=== PATIENT | female | born 1970 | race Caucasian/White ===

== ENCOUNTER 2018-02-15 11:20 | Observation (INO) | END 2018-02-17 16:50 | disposition home or self-care (01) ==

== ENCOUNTER 2018-02-21 17:45 | Inpatient (IN) | END 2018-02-25 19:50 | disposition home or self-care (01) | DRG 393 ==

== ENCOUNTER 2018-04-20 08:59 | Day surgery (SDC) | END 2018-04-20 14:52 | disposition home or self-care (01) ==

== ENCOUNTER 2019-02-17 10:00 | Day surgery (SDC) | payer OTHER ==
[~2019-02-17] VITALS: Ht 162.6 cm; Wt 88.7 kg
[~2019-02-17 10:00] MED LIST: LEVO112T42 PO
[2019-02-17 10:51] VITALS: Ht 162.6 cm; Wt 88.7 kg
[2019-02-17] MEDS ORDERED: [UNRECOGNIZED DRUG - OTHER] (10:59)
--- NOTE | 2019-02-17 11:01 | PREAC ---
Date/Time of Note Date/Time of Note DATE: 02/17/19 TIME: 10:59 Anesthesia Eval and Record Evaluation Time Pre-Procedure Interview DATE: 02/17/19 TIME: 10:59 Age 48 Sex female NPO: 8 hrs Preoperative diagnosis dyspepsia Planned procedure EGD Past Medical History Past Medical History: Includes GI: Obesity Surgery & Anesthesia Issues No known issue Meds Anticoagulation: No Beta Edelmira within 24 hr: No Reason Beta Edelmira not given: Pt. not on B-Edelmira Reported Medications Levothyroxine Sodium* (Levoxyl*) 112 Mcg Tablet, 112 MCG PO BEFORE BREAKFAST, #30 TAB 02/15/18 Meds reviewed: Yes Allergies Coded Allergies: codeine (Verified Allergy, Severe, SWELL, 04/20/18) Uncoded Allergies: FOOD COLORING (Allergy, Unknown, 02/15/18) Allergies Reviewed: Yes Labs/Studies Labs Reviewed: Reviewed by anesthesiologist test: Negative Studies: ECG (n/a), CXR (n/a) Pre-procedure Exam Airway: Adequate mouth opening Mallampati: Mallampati I Teeth: Normal Lung: Normal Heart: Normal ASA Physical Status ASA physical status: 1 Emergency: None Planned Anesthetic General/MAC: MAC Planned Pain Management Parenteral pain med Pre-operative Attestations Prior to commencing anesthesia and surgery, the patient was re-evaluated, there was verification of: *The patient's identity *The results of appropriate recent lab work and preoperative vital signs *The above evaluation not changing prior to induction *Anesthetic plan, risk benefits, alternative and complications discussed with patient/family; questions answered; patient/family understands, accepts and wishes to proceed. BRETT CASTILLO MD Feb 17, 2019 11:01
[2019-02-17] MEDS ORDERED: PROPOFOL 20 ML ONE (11:10)
[2019-02-17] MEDS ORDERED: ONDANSETRON 4 MG INJ IV PRN (11:30)
[2019-02-17 12:00] VITALS: BP 143/67; PULSE 64; RESP 18
--- NOTE | 2019-02-18 08:29 | PAC ---
Date/Time of Note Date/Time of Note DATE: 02/18/19 TIME: 08:29 Post-Anesthesia Notes Post-Anesthesia Note Last documented vital signs Vital Signs Date Temp Pulse Resp B/P (MAP) Pulse Ox O2 O2 Flow FiO2 Time Delivery Rate 02/17/19 98.1 64 18 143/67 97 Room Air 12:00 (92) Activity: WNL Respiratory function: WNL Cardiovascular function: WNL Mental status: Baseline Pain reasonably controlled: Yes Hydration appropriate: Yes Nausea/Vomiting absent: No BRETT CASTILLO MD Feb 18, 2019 08:29
== END 2019-02-17 12:02 | disposition home or self-care (01) ==
LOC: GIL 10:00
PROVIDERS: ATTEND Internal Medicine Gastroenterology
DX: K29.50 Unspecified chronic gastritis without bleeding (principal)
CPT/HCPCS: 43239; 84703; 88305; 88312; Z7610